=== PATIENT | female | born 1955 | race Caucasian/White ===

== ENCOUNTER 2024-01-01 07:21 | Observation (INO) | payer MEDICARE, MEDICAID ==
[2024-01-01 08:25] LABS: MEAN CORPUSCULAR HEMOGLOBIN 23.4 pg (27.0-34.0); MEAN CORPUSCULAR HGB CONC 28.6 g/dL (33.0-35.0); PLATELET COUNT,PLT 425 10^3/uL (150-450); RED BLOOD CELL COUNT 2.22 10^6/uL (4.2-5.4); WHITE BLOOD CELL COUNT,WBC 6.2 10^3/uL (5.0-10.0)
[2024-01-01 08:44] LABS: ALBUMIN 3.2 g/dL (3.4-5.0); ANION GAP 10.4 mEq/L (7-13); BILIRUBIN TOTAL 0.3 mg/dL (0.2-1.0); BUN/CREATININE RATIO 14.7 (No establ ref range); CALCIUM 8.3 mg/dL (8.5-10.1); CREATININE 0.68 mg/dL (0.55-1.02); EST CRCL DRUG DOSING (CG) 90.96 mL/min; POTASSIUM,K 3.4 mmol/L (3.5-5.1); PROTEIN TOTAL,TP 6.6 g/dL (6.4-8.2)
[2024-01-01 08:46] LABS: HEMATOCRIT 18.2 % (37.0-47.0); HEMOGLOBIN 5.2 g/dL (12.0-16.0)
[2024-01-01 08:47] LABS: BASOPHILS PERCENT AUTO 0.2 % (0.0-1.0); EOSINOPHILS PERCENT AUTO 2.4 % (1.0-3.0); LYMPHOCYTES PERCENT AUTO 10.6 % (20.5-50.1); MONOCYTES PERCENT AUTO 11.1 % (2-8); NEUTROPHILS PERCENT AUTO 75.7 % (42.2-75.2)
[2024-01-01 08:59] LABS: A/G RATIO 0.94
[2024-01-01] MEDS: Sodium Chloride 0.9% 250 ML IV SCH (09:31)
[2024-01-01 09:44] LABS: EOSINOPHILS PERCENT MAN 2 % (1-3); LYMPHOCYTES PERCENT MAN 14 % (20-50); MONOCYTES PERCENT MAN 8 % (2-8); SEG NEUTROPHILS PERCENT MAN 76 % (42-75)
[2024-01-01 09:46] LABS: HYPOCHROMASIA 2+ MODERATE
[2024-01-01 10:26] LABS: RETICULOCYTE COUNT PERCENT 2 % (0.5-1.5)
[2024-01-01] MEDS ORDERED: Acetaminophen 325 MG Tab PO PRN (14:32)
[2024-01-01] MEDS ORDERED: Ondansetron 4 MG/2 ML SDV IVPUSH PRN (14:32)
[2024-01-01] MEDS ORDERED: Docusate Sodium 100 MG Cap PO PRN (14:32)
[2024-01-01] MEDS ORDERED: Albuterol 6.7 GM Inhaler INH PRN (14:40)
[2024-01-01 15:11] LABS: PERCENT FE SATURATION 2.9 % (20.0-50.0)
[2024-01-01 18:13] LABS: HEMATOCRIT 23.7 % (37.0-47.0); HEMOGLOBIN 7.2 g/dL (12.0-16.0); MEAN CORPUSCULAR HEMOGLOBIN 25.4 pg (27.0-34.0); MEAN CORPUSCULAR HGB CONC 30.4 g/dL (33.0-35.0); MEAN CORPUSCULAR VOLUME 83.7 fL (80-100); RED BLOOD CELL COUNT 2.83 10^6/uL (4.2-5.4); WHITE BLOOD CELL COUNT,WBC 6.3 10^3/uL (5.0-10.0)
[2024-01-01] MEDS: Azithromycin 250 MG Tab PO SCH (18:26)
[2024-01-01] MEDS: diphenhydrAMINE 50 MG/ML SDV IV ONE (22:57)
[2024-01-01] MEDS: Acetaminophen 325 MG Tab PO ONE (22:57)
[2024-01-02] MEDS: Furosemide 40 MG/4 ML VIAL IVPUSH ONE (05:14)
[2024-01-02 08:35] LABS: HEMOGLOBIN 8.8 g/dL (12.0-16.0); MEAN CORPUSCULAR HEMOGLOBIN 25.8 pg (27.0-34.0); MEAN CORPUSCULAR HGB CONC 30.3 g/dL (33.0-35.0); RED BLOOD CELL COUNT 3.41 10^6/uL (4.2-5.4); WHITE BLOOD CELL COUNT,WBC 5.9 10^3/uL (5.0-10.0)
== END 2024-01-02 13:20 | disposition home or self-care (01) ==
LOC: DL.ED 07:21 → DL.MS 10:09
PROVIDERS: ADMIT Internal Medicine; ATTEND Internal Medicine
DX: D64.9 Anemia, unspecified (principal); Z79.2 Long term (current) use of antibiotics; Z87.891 Personal history of nicotine dependence; Z79.899 Other long term (current) drug therapy
CPT/HCPCS: 36415; 36430; 80053; 82272; 82728; 83540; 83550; 85025; 85027; 85045; 86850; 86900; 86901; 86920; 86922; 87070; 87205; 96374; 96375; 99222; 99239; 99284; 99285; A9270; G0378; J1200; J1940; J7050; P9016; 87077; 87186

== ENCOUNTER 2024-01-21 05:52 | Day surgery (SDC) | payer MEDICARE, MEDICAID ==
[2024-01-21] MEDS ORDERED: fentaNYL 100 MCG/2 ML SDV IV ONE (06:14)
[2024-01-21] MEDS ORDERED: fentaNYL 100 MCG/2 ML SDV ONE (06:14)
[2024-01-21] MEDS ORDERED: Midazolam 1 MG/ML 2 ML SDV ONE (06:14)
[2024-01-21] MEDS ORDERED: Midazolam 1 MG/ML 2 ML SDV IV ONE (06:14)
[2024-01-21] MEDS: Dextrose 5%-0.45% NaCl 1,000 ML IV SCH (06:15)
[2024-01-21] MEDS: fentaNYL 100 MCG/2 ML SDV IV ONE ×2 (06:33→06:34)
[2024-01-21] MEDS: Midazolam 1 MG/ML 2 ML SDV IV ONE ×2 (06:34→06:35)
[2024-01-21] MEDS: Naloxone 2 MG/2 ML Syringe IV ONE (10:28)
== END 2024-01-21 09:10 | disposition home or self-care (01) ==
LOC: DL.ENDO 05:52
PROVIDERS: ATTEND Internal Medicine Gastroenterology
DX: K29.50 Unspecified chronic gastritis without bleeding (principal); K31.89 Other diseases of stomach and duodenum; E66.09 Other obesity due to excess calories; R79.89 Other specified abnormal findings of blood chemistry; Z87.891 Personal history of nicotine dependence
CPT/HCPCS: 43239; 87077; 88305; J2250; J2310; J3010; J7799

== ENCOUNTER 2024-02-05 05:53 | Day surgery (SDC) | payer MEDICARE, MEDICAID ==
[2024-02-05] MEDS ORDERED: Midazolam 1 MG/ML 2 ML SDV IV ONE (05:54)
[2024-02-05] MEDS ORDERED: fentaNYL 100 MCG/2 ML SDV IV ONE (05:54)
[2024-02-05] MEDS: Dextrose 5%-0.45% NaCl 1,000 ML IV SCH (06:18)
[2024-02-05] MEDS ORDERED: Midazolam 1 MG/ML 2 ML SDV ONE (06:22)
[2024-02-05] MEDS ORDERED: fentaNYL 100 MCG/2 ML SDV ONE (06:22)
[2024-02-05] MEDS: fentaNYL 100 MCG/2 ML SDV IV ONE ×2 (07:11→07:40)
[2024-02-05] MEDS: Midazolam 1 MG/ML 2 ML SDV IV ONE ×4 (07:12→07:43)
== END 2024-02-05 09:38 | disposition home or self-care (01) ==
LOC: DL.ENDO 05:53
PROVIDERS: ATTEND Internal Medicine Gastroenterology
DX: C18.7 Malignant neoplasm of sigmoid colon (principal); K63.5 Polyp of colon; D50.9 Iron deficiency anemia, unspecified; K64.4 Residual hemorrhoidal skin tags; K64.8 Other hemorrhoids; K57.30 Diverticulosis of large intestine without perforation or abscess without bleeding; Z87.891 Personal history of nicotine dependence
CPT/HCPCS: 45380; J2250; J3010; J7799

== ENCOUNTER 2025-03-01 04:23 | Emergency (ER) | payer MEDICARE, MEDICAID ==
[2025-03-01] MEDS ORDERED: Sodium Chloride 0.9% 10 ML Syringe FLUSH PRN (04:38)
[2025-03-01] MEDS: Ondansetron 4 MG/2 ML SDV IVPUSH ONE (04:54)
[2025-03-01] MEDS: Ketorolac 30 MG/ML SDV IVPUSH ONE (04:54)
[2025-03-01 04:58] LABS: BASOPHILS PERCENT AUTO 0.6 % (0.0-1.0); EOSINOPHILS PERCENT AUTO 2.1 % (1.0-3.0); LYMPHOCYTES PERCENT AUTO 8.7 % (20.5-50.1); MONOCYTES PERCENT AUTO 9.7 % (2-8); NEUTROPHILS PERCENT AUTO 78.9 % (42.2-75.2); PLATELET COUNT,PLT 234 10^3/uL (150-450); RED BLOOD CELL COUNT 3.70 10^6/uL (4.2-5.4); WHITE BLOOD CELL COUNT,WBC 8.0 10^3/uL (5.0-10.0)
[2025-03-01 05:17] LABS: A/G RATIO 1.0; ALANINE AMINOTRANSFERASE,ALT 27.0 U/L (14-59); ASPARTATE AMNIOTRANSFERASE,AST 17.0 U/L (15-37); BILIRUBIN TOTAL 0.3 mg/dL (0.2-1.0); BLOOD UREA NITROGEN,BUN 8.0 mg/dL (7-18); CARBON DIOXIDE,CO2 30.0 mmol/L (21-32); CHLORIDE,CL 95.0 mmol/L (98-107); CREATININE 0.77 mg/dL (0.55-1.02); EST CRCL DRUG DOSING (CG) 74.09 mL/min; GLUCOSE RANDOM 125.0 mg/dL (70-99); POTASSIUM,K 4.5 mmol/L (3.5-5.1); PROTEIN TOTAL,TP 6.9 g/dL (6.4-8.2); SODIUM,NA 131.0 mmol/L (136-145)
[2025-03-01 05:18] LABS: ESTIMATED GFR 84.0 mL/min (>=60)
[2025-03-01] MEDS: Lactulose Soln 10 GM/15 ML 30 ML UD Cup PO ONE (06:36)
== END 2025-03-01 06:40 | disposition home or self-care (01) ==
LOC: DL.ED 04:23
DX: K59.00 Constipation, unspecified (principal); E03.9 Hypothyroidism, unspecified; Z79.890 Hormone replacement therapy; Z87.891 Personal history of nicotine dependence
CPT/HCPCS: 36415; 74018; 80053; 83690; 83735; 85025; 96374; 96375; 99284; 99284-25; A9270-GY; J1885; J2405